=== PATIENT | male | born 1955 | race Caucasian/White ===

== ENCOUNTER 2022-12-21 05:06 | Observation (INO) ==
--- NOTE | 2022-12-08 11:52 | History & Physical Report ---
Date of Service December 08, 2022 date of surgery: 12/21/22 Procedure: Right Total Knee Arthroplasty Surgeon: Alex Vick Assessment & Plan (1) Arthritis of right knee: Plan: Risk and benefits of the procedure were discussed in detail, he like to proceed with surgical invention. Plan will be right total knee arthroplasty. Will place on aspirin 81 mg twice a day for 1 month postop, we will follow-up in the office 2 weeks after surgery, sooner if he is having any issues. He would like to be discharged with home health physical therapy The risks and benefits have been discussed including, but not limited to, risk of infection, nerve injury, stiffness, loss of motion, failure to improve, etc. Reasonable outcomes and options of treatment were discussed. An explanation of appropriate alternatives to the procedure that may be advantageous were discuss ed and their risks and benefits, as well as the risks and benefits of not proceeding with treatment. I offered to answer any additional inquiries concerning the treatment involved. All the patient's questions were answered. The patient is agreeable, understanding of the treatment plan and alternatives, and wishes to proceed with the treatment plan. History of Present Illness Chief Complaint: Right knee pain Primary Care Provider: Aj Riley DO Meño is a pleasant 67-year-old male who presented for preop evaluation prior to his right total knee replacement, he states he had pain in his knee for many years now which is gradually worsened and is now affecting his daily activities including walking standing using stairs. He has complaints of pain decreased range of motion and instability. Rates his current pain is 7 out of 10. He has tried and failed previous cortisone injection as well as viscosupplementation without any relief. This point time is failed conservative measures like proceed with right total knee replacement Allergies Allergy/AdvReac Type Severity Reaction Status Date / Time No Known Allergies Allergy Verified 09/30/22 08:33 Home Medications Medication Instructions Recorded Confirmed Type aspirin 81 mg tablet,delayed 81 mg PO QAM 09/30/22 09/30/22 History release cartilage 40 mg-collagen II 10 1 tab PO BID 09/30/22 09/30/22 History mg-boron 5 mg-hyaluronate 3.3 mg tablet (Bleachers) coQ10 (ubiquinol) 200 mg capsule 200 mg PO UD 09/30/22 09/30/22 History lisinopril 40 mg tablet 40 mg PO QAM 09/30/22 09/30/22 History metoprolol tartrate 25 mg tablet 25 mg PO BID 09/30/22 09/30/22 History rosuvastatin 20 mg tablet 20 mg PO Q2D 09/30/22 09/30/22 History Past Med/Surg History Medical History CAD (coronary artery disease) s/p 1 stent 2009, occlusion 2010 per pt Degenerative disc disease Hyperlipidemia Hypertension Myocardial Infarction 07/16/2009 Surgical History History of appendectomy History of cardiac cath 2010>no stent placed (noted original stent blocked[facility]followed by Dr. 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 Beliefs That Will Affect Care: None Current Living Situation: Spouse Feels Safe at Home: Yes Assistive Devices: Glasses Review of Systems Review of Systems: All systems reviewed & are unremarkable except as noted in HPI & below Constitutional: no fever, no chills and no sweats Respiratory: no cough and no dyspnea Cardiovascular: no chest pain, no dyspnea and no orthopnea Gastrointestinal: no abdominal pain, no nausea and no vomiting Musculoskeletal: as per Subjective / HPI Physical Exam Physical Exam: HT: 5ft 10in WT: 91.8kg Constitutional: WD/WN, vitals as above no acute distress Respiratory: normal respiratory effort, lungs clear to auscultation no respiratory distress, no labored breathing and does not use accessory muscles Cardiovascular: RRR, no murmur, no edema Gastrointestinal (Abdomen): normal bowel sounds, soft, nontender, no hepatosplenomegaly Musculoskeletal: Knee: + knee abnormal to inspection (Right Knee: ), + effusion (+1 effusion), + limited ROM of knee (ROM 0/3/110), + knee ROM with crepitation, + joint line tenderness (medial joint line) and + Alexandro's sign positive; no deformity, no skin erythema, no ecchymosis, no valgus laxity, no varus laxity, anterior drawer test negative, Bonny's sign negative and pivot shift test negative Results & Data Results & Data Diagnostic Findings Right Knee X-ray: Right knee series showing degenerative changes to the right knee, narrowing of the medial compartment and patello-femoral joint with patellar spurring noted, findings showing joint space narrowing of the medial compartment and patello- femoral joint, osteophyte formation and subchondral sclerosis noted. overall varus alignment. no acute bony pathology noted.
--- NOTE | 2022-12-15 09:53 | Anesthesiology Consultation ---
Date of Service December 15, 2022 Assessment & Plan (1) Encounter for pre-operative examination: Plan - awaiting echocardiogram. - awaiting return call from cardio if echo was advised at 12/05 visit. Denise QURESHI who saw patient returned my call and states that patient is advised to have an echocardiogram which they planned for 05/2022. Case discussed with Dr. Ramirez who advised echocardiogram prior to surgery. Patient made aware, he plans to contact cardiology office for sooner echocardiogram. Surgeon's office made aware. - cardiology 12/05/22: "...[facility] 11/2022: abnormal...echo ordered..." -cardiology clearance 10/19/22: "...coronary artery disease, hypertension, h/o c diff October 2009...LV thrombus...total right knee replacement...will update stress test...pt declines updating test prior to surgery...will clear at intermediate risk..." - Case discussed with Dr. Simon including cardiology notation above,he advised patient needs to pursue stress testing prior to surgery from anesthesia standpoint. Sirena with surgeon's office made aware. Numbers provided by surgeon's office as listed number in chart does not give option to leave a message. Home number not answered. Work number was provided, I asked to speak to patient without disclosing where I was calling from or why, patient answered. We discussed above and he verbalized understanding and agreement, states he will contact cardiology and notify surgeon's office if stress test cannot be scheduled prior to current surgery date to re-schedule procedure. - Outpatient joint assessment: Patient is currently scheduled for inpatient pathway. If re-evaluated pending system levels during current pandemic/surgeon requests outpatient pathway, patient is not recommended candidate for outpatient joint program from anesthesia standpoint. - Per dental chairside assistant on 12/12/2022: No known infectious disease contacts, current infectious disease symptoms in past 10 days or COVID positive test result in the past 90 days. Chart Review Chart Review: Pending: Refer to Additional Notes / Consult section and Patient NOT seen in Pre Admission Testing History Surgery Operation Date: 12/21/22 07:15 Proposed Procedures p Right Total Knee Arthroplasty - Alex Vick DO Height/Weight Height: 5 ft 9 in Weight: 90.265 kg Allergies Allergy/AdvReac Type Severity Reaction Status Date / Time No Known Allergies Allergy Verified 12/12/22 12:48 Medications Home Medications Medication Instructions Recorded Confirmed Last Taken aspirin 81 mg tablet,delayed 81 mg PO QAM 09/30/22 12/12/22 Unknown release coQ10 (ubiquinol) 200 mg capsule 200 mg PO UD 09/30/22 12/12/22 Unknown lisinopril 40 mg tablet 40 mg PO QAM 09/30/22 12/12/22 Unknown metoprolol tartrate 25 mg tablet 25 mg PO BID 09/30/22 12/12/22 Unknown rosuvastatin 20 mg tablet 20 mg PO Q2D 09/30/22 12/12/22 Unknown acetaminophen 500 mg tablet 1,000 mg PO Q6H PRN Pain 12/12/22 12/12/22 Unknown Past Medical History Medical History CAD (coronary artery disease) s/p 1 stent 2009, occlusion 2010 per pt Degenerative disc disease Hyperlipidemia Hypertension Myocardial Infarction 07/16/2009 Past Family History Family History Other No family history of adverse response to anesthesia Past Surgical History Surgical History History of appendectomy History of cardiac cath 2010>no stent placed (noted original stent blocked) [facility]>followed by Latanya Souza PA ([address] [place] [address]) History of colonoscopy History of heart artery stent 2009>1 stent placed History of tonsillectomy History of tooth extraction Social History Smoking Status: Former smoker tobacco type: cigarettes Do You Dip or Chew Tobacco: No Smoking End Date: 35 years ago Hx Alcohol Use: Yes alcohol intake frequency: other Alcohol Intake Frequency Comment: maybe once per month Hx Substance Use: No substance use type: does not use Testing Laboratory Results 12/14/2022 WBC: 8.7 H/H: 14/45 PLATELETS: 250 SODIUM: 140 POTASSIUM: 3.8 CHLORIDE: 108 CO2: 27 BUN: 17 CREATININE: 0.9 GLUCOSE: 98 PT: 12 INR: 1 UA: light yellow, clear, negative A1c: 5.4% Electrocardiogram Date: 10/10/22 Sinus bradycardia, rate 56 bpm Inferior infarct, age undetermined Anterior infarct, age undetermined Chest X-Ray Date: 10/10/22 No acute process Stress Test Date: 11/21/22 Pharmacologic EF 40-45% Abnormal pharmacologic stress nuclear study but negative for ischemia...prior [place]
[2022-12-21] MEDS ORDERED: GABAPENTIN 300 MG CAP PO SCH (06:00)
[2022-12-21] MEDS ORDERED: dexAMETHasone 4 MG TAB PO SCH (06:00)
[2022-12-21] MEDS ORDERED: TRANEXAMIC ACID 1,000 MG **IV Intra-op IV SCH (06:00)
[2022-12-21] MEDS ORDERED: ROPIVACAINE 0.5% HCL/PF 150 MG, BUPIVACAINE 0.75% MPF 20 ML, EPINEPHrine 30MG/30ML (OR ... INSTIL SCH (06:00)
[2022-12-21] MEDS ORDERED: TRANEXAMIC ACID 1,000 MG **IV Pre-op IV SCH (06:00)
[2022-12-21] MEDS ORDERED: LR 60ML/HR IV SCH (06:00)
[2022-12-21] MEDS ORDERED: ACETAMINOPHEN 500 MG TAB PO SCH (06:00)
[2022-12-21] MEDS ORDERED: CeleBREX 200 MG CAP PO SCH (06:00)
[2022-12-21] MEDS ORDERED: FAMOTIDINE 20 MG TAB PO SCH (06:00)
[2022-12-21] MEDS ORDERED: METOCLOPRAMIDE HCL 10 MG TABLET PO SCH (06:00)
[2022-12-21] MEDS ORDERED: ceFAZolin 2000MG 2,000 MG/15 ML SYR IV SCH (06:00)
[2022-12-21] MEDS ORDERED: LR 500ML BOLUS, THEN 15ML/HR IV SCH (06:00)
[2022-12-21] MEDS ORDERED: ROPIVACAINE 0.5% 5 MG/ML 30 ML VIAL ONE (06:29)
[2022-12-21] MEDS ORDERED: BUPIVACAINE 0.5 % 5 MG/1 ML PF 10ML VIAL ONE (06:29)
[2022-12-21] MEDS ORDERED: PROPOFOL IV EMULSION 10 MG/ML 20 ML VIAL IV ONE (06:35)
[2022-12-21] MEDS ORDERED: ONDANSETRON INJ 2 MG/ML 2 ML VIAL ONE (06:35)
[2022-12-21] MEDS ORDERED: fentaNYL citrate PF 100 MCG/2 ML VIAL ONE (06:35)
[2022-12-21] MEDS ORDERED: MIDAZOLAM HCL 1 MG/ML 2ML VIAL ONE ×2 (06:35→07:24)
[2022-12-21] MEDS ORDERED: LIDOCAINE 2% 2 ML VIAL/AMP(20MG/ML) INFIL ONE (06:35)
[2022-12-21] MEDS ORDERED: DEXAMETHASONE SOD INJ 4 MG/ML VIAL ONE (06:35)
[2022-12-21] MEDS ORDERED: ORTHO JOINT ANESTHETIC ONE (07:00)
--- NOTE | 2022-12-21 07:08 | History & Physical Bridge Note ---
Date of Service December 21, 2022 History & Physical Bridge Note I have examined the patient, reviewed the History & Physical and in the interval since the performance of the History & Physical I have noted the following changes of clinical significance: no changes noted
[2022-12-21] MEDS ORDERED: ONDANSETRON INJ 2 MG/ML 2 ML VIAL IV PRN ×2 (07:38→10:26)
[2022-12-21] MEDS ORDERED: HYDROmorphone INJ 2 MG/ML SYR/VIAL IV PRN (07:38)
[2022-12-21] MEDS ORDERED: fentaNYL citrate PF 100 MCG/2 ML VIAL IV PRN (07:38)
[2022-12-21] MEDS ORDERED: PROMETHAZINE HCL 12.5 MG in SODIUM CHLORIDE 0.9% 50 ML IV PRN (07:38)
[2022-12-21] MEDS ORDERED: ePHEDrine sulfate 50 MG/ML AMP IV PRN (07:38)
[2022-12-21] MEDS ORDERED: ATROPINE SULFATE 0.1 MG/ML 10ML SYR IV PRN (07:38)
--- NOTE | 2022-12-21 08:43 | Operative Report ---
Post Operative Report Pre & Post Diagnosis Operation Date: 12/21/22 07:15 Pre-Op Diagnosis: Right Knee Osteoarthritis Post-Op Diagnosis: Right Knee Osteoarthritis I identified the patient and participated in the time-out.: Yes Procedure Operation Date: 12/21/22 07:15 Actual Procedures p Right Total Knee Arthroplasty(Right)Utilizing [employer] persona size femur 7 standard tibia F poly 14 medial constrained patella 31 oval - Alex Vick DO Surgeon Alex Vick DO Typists Supervisor Juarez CORONADO Estimated Blood Loss 5 Findings Consistent with Post-Op Diagnosis Findings are consistent with severe end-stage tricompartmental DJD eburnated [id number] marginal osteophytes subchondral cystic formation moderate to large effusion Specimens Bone and cartilage Drains Medium bore Hemovac Anesthesia Type MAC Spinal Regional Complications none Disposition Accompanied Patient To Recovery: No Disposition: Recovery Room Indications Patient presents severe end-stage DJD right knee nonresponse to conservative management patient failed attempted corticosteroid injection viscosupplementation relative rest activity modification the above intraoperative findings were noted Description of Procedure After proper prepping and draping of the Right lower extremity anterior midline incision was made over the region of the extensor extensor mechanism after meticulous hemostasis was obtained and maintained in subcutaneous tissues a medial parapatellar incision was made The patella was subluxed lateralward the medial lateral gutter were cleaned from any hypertrophic synovitis and scar tissue of the distal femoral block was placed and the distal femoral osteotomy cut was made subsequently the chamfers anterior and posterior osteotomy cuts were made utilizing the 4-in-1 block the tibia was subsequently subluxed anteriorward medial and ateral meniscal remnants were excised in their entirety remnants of the anterior and posterior cruciate ligaments were excised in their entirety excellent exposure of the proximal tibia was obtained the tibial osteotomy guide was placed on the proximal tibial osteotomy cut was made once again the knee was irrigated with copious amounts of sterile saline solution the patella was subsequently everted lateralward thickened scar tissue around the p atella was removed the patella was subsequently cut utilizing a freehand technique and was drilled prepared for final preparation and placement of patella socially flexion-extension gaps were checked and the equal and symmetric trials were placed to the appropriate femoral and tibial trials with poly-spacer being placed for equal flexion and extension gaps and full range of motion including extension to 0 and flexion to 140 the trial components after having been taken to recovery range of motion was subsequently removed meticulous hemostasis was obtained and maintained subsequently a knee block injection of joint cocktail including ropivacaine 0.5% 150 mg. Bupivacaine 0.5% epinephrine 1-200,030 mL's toradol 30 mg dexamethasone 4 mg ketamine 10 mg clonidine 100 micrograms normal saline solution 30 mg was infiltrated into the soft tissues of the posterior knee medial lateral gutters and periosteal synovium special attention was paid to protect neurovascular structures at all times subsequently trial components having been removed the knee was irrigated with sterile saline solution. debris was removed the proximal tibia was subsequently prepared and was made ready for the placement of the tibial component tibial component was also cemented and tamped into position the femoral component was subsequently placed and cemented in the position the patellar component was subsequently cemented in position because hemostasis once again obtained and maintained wound having been thoroughly irrigated with debridement and debridement lavage was performed as well as a medial parapatellar incision closed with #1 Vicryl in interrupted fashion subcutaneous was closed with #2 Vicryl skin was closed with skin clips. PA-C was necessary for prepping and drapping as well as wound closure of deep fascia Sub cutaneous tissue and skin and was necessary for the case. A sterile compressive dressing was placed patient was taken to recovery in stable condition of report dictated by Nicanor I attest to the content of the Intraoperative Record and any orders documented therein. Any exceptions are noted below.Due to the complex nature of the procedure, the entire surgery was performed with the operational assistance of INDIRA Christianson. The assistant editor, under direct supervision, was involved in the actual performance of all aspects of the surgical procedure including hemostasis, tissue retraction and incision, instrument management, patient positioning, and wound closure. I attest to the content of the Intraoperative Record and any orders documented therein. Any exceptions are noted below.
--- NOTE | 2022-12-21 09:53 | XRay Report ---
RIGHT KNEE 2 VIEWS History: Right total knee arthroplasty. Degenerative arthritis. Postop. FINDINGS: The patient is status post a right total knee arthroplasty. The hardware is intact. No frac ture or dislocation. Surgical drains are in place. IMPRESSION: Right total knee arthroplasty. No evidence for hardware complication. ACT 112: Negative or not required by law. Electronically signed by: Drake Carlson M.D. 12/21/2022 9:51 AM
--- NOTE | 2022-12-21 10:09 | Anesthesiology Progress Note ---
Date of Service December 21, 2022 Anesthesia Post Procedure Vital Signs Vital Signs: Temp Pulse Pulse Resp BP Pulse Ox O2 Del Method 12/21/22 10:00 55 L 15 116/82 95 Room Air 12/21/22 09:45 57 L 14 151/86 H 94 Room Air 12/21/22 09:35 36.4 C L 57 L 14 124/71 94 Room Air 12/21/22 09:25 56 L 13 128/77 98 Oxymask 12/21/22 09:16 36.3 C L 55 L 13 105/68 99 Oxymask 12/21/22 05:44 36.8 C 65 18 107/105 H 97 Room Air O2 Flow Rate 12/21/22 10:00 12/21/22 09:45 12/21/22 09:35 12/21/22 09:25 9 12/21/22 09:16 9 12/21/22 05:44 Transfer of Care Handoff Completed per policy Notes Mental Status: alert / awake / arousable and participated in evaluation Patient Amnestic to Procedure: Yes Nausea / Vomiting: adequately controlled Pain: adequately controlled Airway Patency, RR, SpO2: stable & adequate BP & HR: stable & adequate Hydration State: stable & adequate Anesthetic Complications: no major complications apparent
[2022-12-21] MEDS ORDERED: MAGNESIUM HYDROXIDE SUSP 30 ML UDC PO PRN (10:26)
[2022-12-21] MEDS ORDERED: NALOXONE HCL 0.4 MG/1 ML VIAL/CARP IV PRN (10:26)
[2022-12-21] MEDS ORDERED: diphenhydrAMINE Capsule 25 MG CAP PO PRN (10:26)
[2022-12-21] MEDS ORDERED: bisacodyL 10 MG SUPP PR PRN (10:26)
[2022-12-21] MEDS ORDERED: oxyCODONE HCL IR 5 MG TAB (IMMEDIATE RELEASE) PO PRN (10:26)
[2022-12-21] MEDS ORDERED: METOCLOPRAMIDE HCL INJ 5 MG/ML 2 ML VIAL IV PRN (10:26)
[2022-12-21] MEDS ORDERED: HYDROmorphone INJ 1 MG/ML SYRINGE IV PRN (10:26)
[2022-12-21] MEDS: SODIUM CHLORIDE 0.9% 1000ML 1,000 ML IV SCH ×2 (10:40→21:45)
[2022-12-21] MEDS: KETOROLAC TROMETHAMINE 15 MG/ML VIAL IV SCH ×3 (11:56→23:03)
[2022-12-21] MEDS: ceFAZolin 2000MG 2,000 MG/15 ML SYR IV SCH ×2 (13:35→21:46)
[2022-12-21] MEDS: ACETAMINOPHEN 500 MG TAB PO SCH ×2 (13:35→21:30)
[2022-12-21] MEDS ORDERED: SENNA 8.6 MG TAB PO SCH (21:00)
[2022-12-21] MEDS: METOPROLOL TARTRATE 25 MG TAB PO SCH (21:29)
[2022-12-21] MEDS: ASPIRIN 81 MG ECTAB PO SCH (21:30)
[2022-12-21] MEDS: CeleBREX 200 MG CAP PO SCH (21:30)
[2022-12-21] MEDS: DOCUSATE SODIUM 100 MG CAP PO SCH (21:30)
[2022-12-22] MEDS: ACETAMINOPHEN 500 MG TAB PO SCH (04:53)
[2022-12-22] MEDS: METOPROLOL TARTRATE 25 MG TAB PO SCH (04:53)
[2022-12-22] MEDS: KETOROLAC TROMETHAMINE 15 MG/ML VIAL IV SCH (04:56)
--- NOTE | 2022-12-22 07:08 | Orthopedic Progress Note ---
Date of Service December 22, 2022 Assessment & Plan (1) History of total right knee replacement: Plan: POD #1 s/p Right TKA pt/ot dvt proph with RAVI/SCD/ASA plan for d/c home with HHPT difficulty voiding- cath x 2 last evening, will place urology consult and await recommendations prior to discharge Admission and Anticipated Discharge Date Admission Date: December 21, 2022 Subjective POD #1 s/p Right TKA Review of Systems Constitutional: no fever, no chills and no sweats Respiratory: no cough and no dyspnea Cardiovascular: no chest pain and no dyspnea Gastrointestinal: no abdominal pain, no nausea and no vomiting Genitourinary: + difficulty urinating (cath x 2 over last 24 hours) Physical Exam Physical Exam: Vital Signs Temp 36.7 C 12/22/22 03:00 Pulse 69 12/22/22 04:54 Resp 16 12/22/22 03:00 BP 169/97 H 12/22/22 04:54 Pulse Ox 96 12/22/22 03:00 O2 Del Method Room Air 12/22/22 03:00 O2 Flow Rate 9 12/21/22 09:25 Intake & Output 12/21/22 12/22/22 12/22/22 18:59 06:59 18:59 Intake Total 1320 / 2520 1200 / 2520 Output Total 155 / 2405 2250 / 2405 Balance 1165 / 115 -1050 / 115 Weight 89.9 kg Intake: IV 0 / 1000 1000 / 1000 Lactated Ringe r's 1,000 ml @ 15 0 / 0 mls/hr IV .Q24 H YAJAIRA Rx#: [id number] Sodium Chlorid e 0.9% 1000ML 1, 1000 / 1000 000 ml @ 100 m ls/hr IV .Q10H YAJAIRA Rx#:[id number] Tranexamic Aci d / 0.7% NaCl 1, 0 / 0 000 mg In 100 ml @ 600 mls/hr IV TODAY@0600 YAJAIRA Rx#:[id number] IV Perioperative 1200 / 1200 Oral 120 / 320 200 / 320 Output: Urine 100 / 100 Estimated Blood Loss 5 / 5 Urine Amount (Ca theter) 1999 Straight 1999 Drain Output 50 / 300 250 / 300 Right Knee Hem ovac 50 / 300 250 / 300 Other: # Unmeasured Voi ds 1 1 Constitutional: WD/WN, vitals as above Musculoskeletal: Right Leg: NVDI, calf SNT, negative meche sign. DP palpable, able to wiggle toes/ankle movement without difficulty. dressing clean dry and intact. Results & Data Vital Signs (Past 12 Hours) Vital Signs Temp Pulse Resp BP Pulse Ox O2 Del Method 12/22/22 04:54 69 169/97 H 12/22/22 03:00 36.7 C 64 16 177/97 H 96 Room Air 12/21/22 21:33 36.9 C 73 14 142/81 H 93 Room Air 12/21/22 19:32 36.6 C 82 18 156/92 H 95 Room Air Laboratory Results Impressions Knee X-Ray 12/21/22 09:23 RIGHT KNEE 2 VIEWS History: Right total knee arthroplasty. Degenerative arthritis. Postop. FINDINGS: The patient is status post a right total knee arthroplasty. The hardware is intact. No fracture or dislocation. Surgical drains are in place. IMPRESSION: Right total knee arthroplasty. No evidence for hardware complication. ACT 112: Negative or not required by law. Electronically signed by: Drake Carlson M.D. 12/21/2022 9:51 AM Impressions Knee X-Ray 12/21/22 09:23 RIGHT KNEE 2 VIEWS History: Right total knee arthroplasty. Degenerative arthritis. Postop. FINDINGS: The patient is status post a right total knee arthroplasty. The hardware is intact. No fracture or dislocation. Surgical drains are in place.
[2022-12-22 07:28] LABS: Hemoglobin 13.3 g/dl (14.0-18.0); Mean Corpuscular Hgb Conc 34.1 g/dL (32.0-36.0); Mean Corpuscular Volume 90.9 fL (80.0-100.0); Mean Platelet Volume 9.8 fL (9.4-12.4); Platelet Count 229 K/uL (130-400); RDW Coefficient of Variation 12.3 % (11.5-14.5); RDW Standard Deviation 40.8 fL (36.4-46.3); Red Blood Count 4.29 M/uL (4.70-6.10); White Blood Count 17.81 K/ul (4.8-10.8)
[2022-12-22 07:47] LABS: BUN Creatinine Ratio 24.1 (10-20); Calcium 9.1 mg/dl (8.6-10.3); Est GFR (African American) 108.5 ml/min; Est GFR (Non-African American) 93.6 ml/min; Potassium 4.6 mmol/L (3.5-5.1)
--- NOTE | 2022-12-22 07:52 | Urology Consultation ---
Date of Consultation December 22, 2022 Assessment & Plan (1) Urinary retention: 67 yo M admitted after scheduled R TKA Pt s/p POD #1 s/p R TKA with Dr. Vick Urology consulted for post op urinary retention We discussed potential etiologies including bladder outlet obstruction, anesthetic effect, constipation and others Required straight cath x 2 overnight for large volumes Discussed recommendation for catheter for bladder decompression and rest Recommend maintain catheter for 7-10 days Recommend discharge with Tamsulosin once daily Will arrange f/u with our service for voiding trial and further management History of Present Illness Attending Physician: Alex Vick, History of Present Illness This is a 67-year-old male with past medical history of CAD, hyperlipidemia, hypertension, [place], and arthritis of right knee who was admitted after scheduled right TKA with Dr. Vick on 12/21/2022. Urology is consulted for urinary retention. Patient voided small amounts after surgery. He required straight catheterization x 2 overnight for large volumes (1075 mL, 925 mL). Today's lab show - creatinine 0.79, WBC 17.81, Hgb 13.3. Generally doing well. Denies dysuria or hematuria. Reports small BM this AM. Denies f/c/n/v. No prior history of urinary retention. No medications for BPH/voiding. Endorses some mild LUTS at baseline including nocturia x 2, weaker stream, and occasional urgency. No feelings of incomplete emptying at baseline. No family history of malignancy. Reports having a PSA several years ago, no recent PSAs. Allergies Allergy/AdvReac Type Severity Reaction Status Date / Time No Known Allergies Allergy Verified 12/21/22 05:40 Home Medications Medication Instructions Recorded Confirmed Type lisinopril 40 mg tablet 40 mg PO QAM 09/30/22 12/21/22 History metoprolol tartrate 25 mg tablet 25 mg PO BID 09/30/22 12/21/22 History rosuvastatin 20 mg tablet (Crestor) 20 mg PO Q2D 09/30/22 12/21/22 History acetaminophen 500 mg tablet 1,000 mg PO Q8 pain 21 days #126 12/22/22 Rx tabs aspirin 81 mg tablet,delayed 81 mg PO BID 30 days #60 tabs 12/22/22 Rx release cefadroxil 500 mg capsule 500 mg PO BID 14 days #28 caps 12/22/22 Rx celecoxib 200 mg capsule (Celebrex) 200 mg PO BID 30 days #60 caps 12/22/22 Rx docusate sodium 100 mg capsule 100 mg PO BID #20 caps 12/22/22 Rx oxycodone 5 mg tablet 5 - 10 mg PO Q6H PRN pain #30 tabs 12/22/22 Rx Patient History Medical History CAD (coronary artery disease) s/p 1 stent 2009, occlusion 2010 per pt Degenerative disc disease Hyperlipidemia Hypertension Myocardial Infarction 07/16/2009 Surgical History History of appendectomy History of cardiac cath 2010>no stent placed (noted original stent blocked) [facility]>followed by Latanya Souza, PA ([address] [place] [address]) History of colonoscopy History of heart artery stent 2009>1 stent placed History of tonsillectomy History of tooth extraction Family History Other No family history of adverse response to anesthesia Social History Smoking Status: Former smoker Smoking End Date: 35 years ago; Second Hand Exposure: No; Do You Dip or Chew Tobacco: No; Tobacco Cessation Education Requested by Patient: No Hx Alcohol Use: Yes Hx Substance Use: No Preferred Language: Omani Communication Ability: Effective 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 [employer] 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: No Beliefs That Will Affect Care: None Current Living Situation: Spouse Other Information That Helps Us Care for You: No Feels Safe at Home: Yes Safety Concerns: Feels Safe At This Time Assistive Devices: Glasses Review of Systems Review of Systems: All systems reviewed & are unremarkable except as noted in HPI & below Physical Exam Physical Exam: General: well-appearing, no acute distress HEENT: Normocephalic Pulmonary: Nonlabored respirations Abdomen: Nondistended Extremities: Moves all 4 spontaneously Neuro: No gross deficits Psych: alert and oriented, normal mood Skin: Warm, dry, no rashes noted Results & Data Vital Signs (Past 12 Hours) Vital Signs Temp Pulse Resp BP BP Pulse Ox O2 Del Method 12/22/22 07:46 36.6 C 64 18 168/98 H 96 Room Air 12/22/22 04:54 69 169/97 H 12/22/22 03:00 36.7 C 64 16 177/97 H 96 Room Air 12/21/22 21:33 36.9 C 73 14 142/81 H 93 Room Air PG Care Time/CCT Total # of Minutes Spent Total Time Spent with Patient: Total time spent is greater than 50% in coordination of care (as documented) at patient's floor/unit and/or counseling patient: Coding Level of Care Code 50824 INT INP/OBS CARE 1/40MIN Diagnoses Urinary retention R33.9
[2022-12-22] MEDS ORDERED: ROSUVASTATIN CALCIUM 20 MG TAB PO SCH (09:00)
[2022-12-22] MEDS ORDERED: lisinopril 40 MG TAB PO SCH (09:00)
[2022-12-22] MEDS ORDERED: MULTIVITAMIN TAB PO SCH (09:00)
[2022-12-22] MEDS: DOCUSATE SODIUM 100 MG CAP PO SCH (09:03)
[2022-12-22] MEDS: CeleBREX 200 MG CAP PO SCH (09:03)
[2022-12-22] MEDS: ASPIRIN 81 MG ECTAB PO SCH (09:04)
--- NOTE | 2022-12-22 13:58 | Discharge Summary ---
Date of Service date of discharge: December 22, 2022 date of admission: 12/21/22 Admission HPI Per Admitting Provider Meño is a pleasant 67-year-old male who presented for preop evaluation prior to his right total knee replacement, he states he had pain in his knee for many years now which is gradually worsened and is now affecting his daily activities including walking standing using stairs. He has complaints of pain decreased range of motion and instability. Rates his current pain is 7 out of 10. He has tried and failed previous cortisone injection as well as viscosupplementation without any relief. This point time is failed conservative measures like proceed with right total knee replacement Principal Diagnosis right knee arthritis Discharge Exam Vital Signs Temp 36.7 C 12/22/22 03:00 Pulse 69 12/22/22 04:54 Resp 16 12/22/22 03:00 BP 169/97 H 12/22/22 04:54 Pulse Ox 96 12/22/22 03:00 O2 Del Method Room Air 12/22/22 03:00 O2 Flow Rate 9 12/21/22 09:25 Intake & Output 12/21/22 12/22/22 12/22/22 18:59 06:59 18:59 Intake Total 1320 / 2520 1200 / 2520 Output Total 155 / 2405 2250 / 2405 Balance 1165 / 115 -1050 / 115 Weight 89.9 kg Intake: IV 0 / 1000 1000 / 1000 Lactated Ringer's 1,000 ml @ 15 0 / 0 mls/hr IV .Q24H YAJAIRA Rx#: [id number] Sodium Chloride 0.9% 1000ML 1, 1000 / 1000 000 ml @ 100 mls/hr IV .Q10H YAJAIRA Rx#:[id number] Tranexamic Acid / 0.7% NaCl 1, 0 / 0 000 mg In 100 ml @ 600 mls/hr IV TODAY@0600 YAJAIRA Rx#:[id number] IV Perioperative 1200 / 1200 Oral 120 / 320 200 / 320 Output: Urine 100 / 100 Estimated Blood Loss 5 / 5 Urine Amount (Catheter) 1999 Straight 1999 Drain Output 50 / 300 250 / 300 Right Knee Hemovac 50 / 300 250 / 300 Other: # Unmeasured Voids 1 1 Constitutional WD/WN, vitals as above no acute distress Respiratory normal respiratory effort, lungs clear to auscultation no respiratory distress, no labored breathing and does not use accessory muscles Cardiovascular RRR, no murmur, no edema Gastrointestinal (Abdomen) normal bowel sounds, soft, nontender, no hepatosplenomegaly Musculoskeletal Knee: + knee abnormal to inspection (Right Knee: ), + effusion (+1 effusion), + limited ROM of knee (ROM 0/3/110), + knee ROM with crepitation, + joint line tenderness (medial joint line) and + Alexandro's sign positive; no deformity, no skin erythema, no ecchymosis, no valgus laxity, no varus laxity, anterior drawer test negative, Bonny's sign negative and pivot shift test negative Discharge Data Allergies Allergy/AdvReac Type Severity Reaction Status Date / Time No Known Allergies Allergy Verified 12/21/22 05:40 Consultations 12/22/22 07:03 Consult Urology Routine Procedures Performed Operation Date: 12/21/22 07:15 Actual Procedures p Right Total Knee Arthroplasty(Right) - Alex Bucio DO Ordered Studies 12/21/22 05:00 US - OR guided needle placemen Routine 12/21/22 07:37 US - OR guided needle placemen Stat Hospital Course (1) History of total right knee replacement: POD #1 s/p Right TKA pt/ot dvt proph with RAVI/SCD/ASA plan for d/c home with HHPT difficulty voiding- cath x 2 last evening, will place urology consult and await recommendations prior to discharge Total Time Total Time Spent Total Time Spent (In Minutes): 20 Discharge Plan Discharge Items Patient Disposition: Home - Home Health Services Reason For Visit: Right Knee Osteoarthritis Discharge Diagnosis: right total knee replacement Activity: Per Instructions section Weightbearing Comment: WBAT with walker Non-emergency contact: Surgeon Call non-emergency contact if: you have any medication questions, your temperature is above 101, your wound has increased redness, your wound has increased drainage and your wound pain has increased Follow-up/Referrals: Aj Riley DO [Primary Care Provider] - Diet: Regular Addtl Attending Provider Instructions: ACTIVITY RECOMMENDATIONS: SELF CARE INSTRUCTIONS AFTER TOTAL KNEE REPLACEMENT A. You may need to continue a physical therapy program after discharge from the hospital. There are several options available to you. Your doctor will assist you in selecting the best one for you. 1. An out-patient facility 2 to 3 times a week for therapy or home therapy. 2. Continue working on all exercises taught to you in the hospital. Your goals should be to increase bending of your knee to 90 degrees and beyond and to fully straighten your knee. B. You may progress at your own pace from walking with a walker or crutches to a cane; then to no assistive devices. C. Make walking a part of your daily routine. Be up as much as comfortable with rest periods throughout the day. Rest with leg elevation is very important. Use the ice wrap frequently for the first 3-4 weeks. D. There are no restrictions on activities. 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 E. Wear the long elastic stockings (RAVI hose) 20 hours a day for 2 weeks after surgery. They can be removed several times a day for laundering and for a bath. F. You may shower, no tub baths until cleared by your doctor. SPECIAL CARE INSTRUCTIONS: VERY IMPORTANT TO READ AND REVIEW A. There are a few signs you need to watch for after you are home. Call [facility] [place] if you notice any of the followin. Increased severe knee pain. Some pain is expected especially when you exercise. 2. Increased swelling in your leg or knee; pain or swelling of the calf muscle in either lower leg. 3. Any fluid drainage from the incision. 4. Shortness of breath or chest pain. B. Please call [facility] [place] at if you have any concerns or questions about your operation or recovery. The doctor or his nurse will return your call promptly. C. You must take antibiotics before dental work, bladder, bowel or other cooney rgery. Your doctor will provide you with a permanent care to carry describing this precaution. IMPORTANT: * REMEMBER TO TAKE ASPIRIN, 81 MG, TWICE DAILY FOR 4 WEEKS UNLESS OTHERWISE DIRECTED. THIS IS YOUR BLOOD THINNER. * HIGH RISK PATIENTS MAY BE PRESCRIBED A STRONGER BLOOD THINNER. THIS WILL BE PROVIDED AT DISCHARGE. * CALL IF INCREASED PAIN, REDNESS, DRAINAGE OR FEVER GREATER THAT 101. * WEAR RAVI HOSE 20 HOURS PER DAY FOR 2 WEEKS. DRESSING INSTRUCTIONS * JESÚS Dressing- This is a large suction dressing covering your incision. This will help pull any excess drainage from the wound and allow your incision to heal properly. You may shower with this if you can keep the unit outside of the shower. If any bleeding or leakage is noted please call your doctor's office. This will remain on your incision for 7 days and then should be removed. This can be done yourself or by the home nursing staff if applicable. The entire unit is disposable once removed. Once removed, keep incision clean and dry. If redness or drainage is noted, please call your surgeon. ONCE JESÚS IS REMOVED, FOLLOW THESE INSTRUCTIONS: DERMABOND Prineo- This is a mesh tape dressing that is covered with glue. It should remain in place until the incision is properly healed, usually 10-14 days. This dressing is designed to naturally slough off. You may trim the excess mesh tape as it peels off. Incision may be briefly wet in a shower. Dry immediately by blotting with a clean, dry towel. Do not bath or swim until instructed by your doctor. Do not scratch, rub, or pick at the dressing. Do not apply any topical ointments or lotions until dressing is completely removed and/or instructed by your doctor. There may be a small piece of suture material at one end of your incision. Do not pull or trim this. If it is bothersome or catching on clothing, you may cover it with a band-aid. IF INCISION IS LEAKING THROUGH DRESSING, CALL THE OFFICE . FOLLOW UP VISIT: If appointment is not already scheduled: Please call [facility] [place] to make a follow-up appointment for 2 weeks after your surgery at . Pending Studies at Discharge: No Stand-Alone Forms: My [facility] [employer], Smoking Cessation Medications and DC Order Prescriptions: New acetaminophen 500 mg tablet 1,000 mg PO Q8 21 Days Qty: 126 0RF aspirin 81 mg tablet,delayed release (DR/EC) 81 mg PO BID 30 Days Qty: 60 0RF celecoxib [Celebrex] 200 mg capsule 200 mg PO BID 30 Days Qty: 60 0RF cefadroxil 500 mg capsule 500 mg PO BID 14 Days Qty: 28 0RF docusate sodium 100 mg Capsule 100 mg PO BID Qty: 20 0RF oxycodone 5 mg tablet 5 - 10 mg PO Q6H PRN (Reason: pain) Qty: 30 0RF Rx Instructions: ongoing therapy, supervising dr fredirck bucio. max 6 tabs in 24 hours Continued lisinopril 40 mg Tablet 40 mg PO QAM rosuvastatin [Crestor] 20 mg Tablet 20 mg PO Q2D metoprolol tartrate 25 mg Tablet 25 mg PO BID Discontinued aspirin [Aspir-81] 81 mg Tablet,Delayed Release (Dr/Ec) 81 mg PO QAM coQ10 (ubiquinol) 200 mg Capsule 200 mg PO UD Patient Comments: alternates taking 1 tab/2 tabs every other day acetaminophen 500 mg Tablet 1,000 mg PO Q6H PRN (Reason: Pain) Admission Data Admit Date/Time: 12/21/22 09:23 Attending Provider: Alex Bucio Admit Provider: Alex Bucio Primary Care Provider: Aj Riley Other Providers: [facility] ; Tony Covarrubias ; Alek Hernandez ; Jonathan Young ; Julienne Fleming ; Watson Murray ; aZra Law ; Kristi Marie ; Les Cabrales ; Sarah Francisco ; Kely Gonzalez ; Alex Berger ; Alvino Rizvi Other Interventions: Discharge Summary Assessment (RN) Last Done: 12/22/22 10:50
== END 2022-12-22 12:45 | disposition home health service (06) ==
LOC: ASU 05:06 → 3E 05:06